=== PATIENT | male | born 1970 | race African-American/Black ===

== ENCOUNTER 2016-08-20 10:46 | Emergency (ER) | payer MEDICAID, OTHER ==
[~2016-08-20] VITALS: Ht 182.9 cm; Wt 72.6 kg
[2016-08-20 11:45] VITALS: BP 104/71
[2016-08-20] MEDS ORDERED: AUGMENTIN 500-1 EACH ORAL (12:08)
[2016-08-20] MEDS ORDERED: IBUPROFEN600 MG ORAL (12:08)
[2016-08-20] MEDS ORDERED: TRAMADOL HCL50 MG ORAL (12:08)
[2016-08-20 12:15] VITALS: BP 104/71
--- NOTE | 2016-08-21 01:41 | Emergency Room Report ---
History of Present Illness General Chief Complaint: Headache Source: Patient Present Illness HPI Patient presents with R facial swelling and pain. Has had before with dental abscesses. Not seek treatment for teeth. Feverish, not documented. No nasal discharge. No neck stiffness. Pain is 8/10, constant, pressure and burning. NO meds taken. The head itself is not tender and there is no weakness. No NVD, skin rashes, cough, chest pain, SOB. Allergies: Coded Allergies: No Known Allergies (Unverified , 08/20/16) Patient History Past Medical History: see triage record Social History: Reports: smoking Social History Narrative cook Reviewed Nursing Documentation: PMH: Agreed, PSxH: Agreed Nursing Documentation-PMH Past Medical History: No Stated History Review of Systems All Other Systems: negative except mentioned in HPI Physical Exam Vital Signs Date Time Temp Pulse Resp B/P Pulse Ox O2 Delivery O2 Flow Rate FiO2 08/20/16 11:05 97.9 90 18 104/71 99 Room Air General Appearance: well appearing, no apparent distress Head: normocephalic, atraumatic, other - facial swelling R - more starting upper gum area Eyes: bilateral eye PERRL, bilateral eye normal inspection, bilateral eye other - slight swelling R periorbital area (more inferior) ENT: hearing grossly normal, normal pharynx, no angioedema, normal voice, moist mucus membranes, other - swelling R upper gum Neck: full range of motion, supple Respiratory: no respiratory distress, speaking full sentences Musculoskeletal: no calf tenderness Neurologic: oriented x3, housekeeper/laundry assistant III-XII nml as tested - grossly normal with R facial swell, motor strength/tone normal, normal gait, speech normal Psychiatric: mood/affect normal Skin: no rash Medical Decision Making Diagnostic Impression: Primary Impression: Dental infection Additional Impression: Headache Qualified Codes: R51 - Headache ER Course Patient with facial swelling and pain. DDx; dental abscess, periorbital cellulitis, facial cellulitis amongst others. Clinically has dental infection with facial swelling. No evidence of meningitis or REMARKETING MANAGER infection. Antibiotics and analgesics indicated. No further evaluation needed at this time. Improved. Patient stable for outpatient observation and treatment. Last Vital Signs Date Time Temp Pulse Resp B/P Pulse Ox O2 Delivery O2 Flow Rate FiO2 08/20/16 12:15 97.9 90 18 104/71 99 Room Air Status: improved Disposition: HOME, SELF-CARE Condition: Improved Scripts Tramadol Hcl* (ULTRAM*) 50 Mg Tablet 50 MG ORAL Q6H Y for For Pain, #6 TAB 0 Refills Prov: Derek Hilton M.D. 08/20/16 Ibuprofen* (MOTRIN*) 600 Mg Tablet 600 MG ORAL Q6H Y for For Pain, #20 TAB Prov: Derek Hilton M.D. 08/20/16 Amoxicillin/Potassium Clav 500-125 Tablet* (AUGMENTIN 500-125 TABLET*) 1 Each Tablet 1 TAB ORAL THREE TIMES A DAY, #21 TAB Prov: Derek Hilton M.D. 08/20/16 Patient Instructions: Dental Abscess Additional Instructions: See your dentist soon. OK to take tylenol. Rinse with peroxide twice a day. Derek Hilton M.D. Aug 21, 2016 01:41
== END 2016-08-20 12:15 | disposition home or self-care (01) ==
LOC: EMR 11:47
DX: K04.7 Periapical abscess without sinus (principal); R51 Headache; F17.200 Nicotine dependence, unspecified, uncomplicated
CPT/HCPCS: 99284